=== PATIENT | female | born 1970 | race Caucasian/White ===

== ENCOUNTER → 2017-08-15 16:51 | Outpatient (CLI) | payer MEDICAID, SELFPAY ==
--- NOTE | 2017-08-15 | XR_ITS ---
XR chest 2V HISTORY: Pneumonia, cough and congestion ORDERING PHYSICIAN: Jazmine Fu PATIENT AGE: 47 years COMPARISON: 11/25/2012 FINDINGS: The cardiomediastinal silhouette and pulmonary vascularity are within normal limits. The lungs are clear without infiltrates, suspicious nodules, or pleural effusions. Minimal mid thoracic curvature convex right No acute bony abnormalities. IMPRESSION: Negative chest, no acute finding
== END ==
PROVIDERS: PCP Nurse Practitioner Family; Visit Provider Nurse Practitioner Family
DX: J18.0 Bronchopneumonia, unspecified organism (principal)
CPT/HCPCS: 71046

== ENCOUNTER 2019-10-15 11:04 | Emergency (ER) | payer MEDICAID, SELFPAY ==
[2019-10-15 11:35] LABS: Apearance,Urine Clear (Clear); Color,Urine Yellow (Yellow)
[2019-10-15 11:36] VITALS: BP 126/82; PULSE 68; RESP 20; TEMP 36.6; O2SAT 98; BMI 23.1
[2019-10-15 11:36] LABS: Bilirubin,Urine Negative (Negative); Blood, Urine Negative (Negative); Glucose,Urine (UA) Negative (Negative); Ketones,Urine Negative (Negative); Protein,Urine Negative (Negative); Specific Gravity, Urine 1.015 (1.005-1.030); UTC Leukocyte Esterase,Urine Negative (Negative); UTC Nitrate,Urine Negative (Negative); Urobilinogen,Urine 0.2 EU/dl (0.2)
--- NOTE | 2019-10-15 11:49 | HMH.EDUTC ---
[facility] [place] Clinical Impression: UTI (urinary tract infection) Qualifiers: Urinary tract infection type: acute cystitis Hematuria presence: without hematuria Qualified Code(s): N30.00 - Acute cystitis without hematuria Disposition: Home, Self-Care Condition on Discharge: Good Instructions: DI for Urinary Tract Infection (UTI) Additional Instructions: Follow up with Dr Gilmore next week regarding urine culture results. Prescriptions: Fluconazole [Diflucan 150mg tab] 150 mg PO ONCE 1 Days #1 tab Transmission Status: Pending to [employer] # Cefdinir [Omnicef 300mg Capsule] 300 mg PO BID 20 Days #20 cap Transmission Status: Pending to [employer] # Referrals: Nidia Gilmore MD [Primary Care Provider] - Time of Disposition: 11:53 Medical Decision Making - [place]ton Inquiry Pt receiving controlled substance: No - Lab Data Lab results reviewed: Yes: I reviewed the patient's lab results. Lab Results 10/15/19 11:34: Urine Color Yellow, Urine Appearance Clear, Urine pH 7.0, Ur Specific [place] 1.015, Urine Protein Negative, Urine Glucose (UA) Negative, Urine Ketones Negative, Urine Blood Negative, Urine Nitrate Negative, Urine Bilirubin Negative, Urine Urobilinogen 0.2, Ur Leukocyte Esterase Negative Medical Decision Narrative: Patient states that all symptoms are consistent with UTI symptoms. Unfortunately she has already taken Cipro that she has left over at home. Urinalysis was negative but we will send for culture. [facility] [place] - General Stated complaint: possible UTI Time Seen by Provider: 10/15/19 11:40 - History of Present Illness Provider Complaint: Patient states that she has left ear pain as well as dysuria, frequency, odor and incontinence. Also has mild itchiness. Mild discharge, but she states that that occurs each time she gets a UTI. Has mild suprapubic pain and is irritable/salgado which also occurs with UTI. No fever. No vomiting or diarrhea. Some dizziness when she turns her head. Unfortunately, took leftover Cipro from home which complicates UA results. Onset (ago): week(s) (1) Quality: burning Relieving factors: none Exacerbating factors: none Associated symptoms: denies other symptoms Treatments prior to arrival: none - Related Data Previous Rx's Medication Instructions Recorded Cefdinir [Omnicef 300mg Capsule] 300 mg PO BID 20 Days #20 cap 10/15/19 Fluconazole [Diflucan 150mg tab] 150 mg PO ONCE 1 Days #1 tab 10/15/19 Allergies Allergy/AdvReac Type Severity Reaction Status Date / Time gabapentin [GABAPENTIN] Allergy Unknown SWELLING Unverified 06/24/17 15:18 [facility] History - Hepatitis A Screen Attestation statement:: This patient has been screened for Hepatitis A risk factors. I have reviewed the patient's past medical history: Yes ROS Obtained: Yes All systems reviewed & no additional complaints - ENT Ears, Nose, Mouth, and Throat: Reports otalgia - Genitourinary Female Genitourinary: Reports dysuria, Reports urinary frequency, Reports urinary incontinence, Reports urinary urgency, Reports vaginal discharge, Reports vaginal itching Physical Exam - General General appearance: alert, in no apparent distress - Head Head exam: atraumatic, normocephalic, normal inspection - Eye Eye exam: Present: normal appearance, PERRL, EOMI - ENT ENT exam: Present: normal exam, normal oropharynx, mucous membranes moist, TM's normal bilaterally, normal external ear exam - Neck Neck exam: Present: normal inspection, full ROM, trachea midline. Absent: meningismus, lymphadenopathy - Chest Chest inspection: Present: normal inspection, symmetric chest wall rise. Absent: tenderness - Respiratory Respiratory exam: Present: normal lung sounds bilaterally. Absent: respiratory distress - Cardiovascular Cardiovascular exam: Present: regular rate, normal rhythm. Absent: JVD - Abdominal Exam Abdominal exam: Present: soft, normal bow
[2019-10-15 12:41] VITALS: BP 126/82; PULSE 68; RESP 20; TEMP 36.6; O2SAT 98
== END 2019-10-15 12:43 | disposition home or self-care (01) ==
PROVIDERS: Emergency Provider Physician Assistant; PCP Family Medicine
DX: N30.00 Acute cystitis without hematuria (principal); Z79.899 Other long term (current) drug therapy; H92.09 Otalgia, unspecified ear
CPT/HCPCS: 81003; 87086; 99201

== ENCOUNTER 2020-08-28 14:42 | Emergency (ER) | payer MEDICAID, SELFPAY ==
[2020-08-28 14:43] VITALS: BP 131/85; PULSE 62; RESP 19; TEMP 37.1; O2SAT 100; BMI 31.3
--- NOTE | 2020-08-28 15:10 | ECG_ITS ---
APPROVED REPORT Exam: Resting ECG HR:56 bpm ECG Measurements Heart Rate 56 AXES WV 168 P 58 QRSd 72 QRS 52 QT 422 T 61 QTc 407 Conclusion Sinus bradycardia with marked sinus arrhythmia Otherwise normal ECG Electronically signed by : Yuan Marroquin, 08/28/2020 20:13:48
--- NOTE | 2020-08-28 15:14 | XR_ITS ---
PROCEDURE: XR CHEST 2V CLINICAL HISTORY: syncope Syncope and shortness of breath COMPARISON: CR CXR CHEST(2 VIEWS-NOT PORTABLE) from 09/21/2012 CR CXR CHEST(2 VIEWS-NOT PORTABLE) from 11/25/[address] [facility] [address] CHEST W/O CONTRAST from 03/03/2013 CR CXR2V XR chest 2V from 08/15/2017 FINDINGS: The cardiomediastinal silhouette and pulmonary vascularity are within normal limits. The lungs are clear without infiltrates, suspicious nodules, or pleural effusions. Calcified granuloma right upper lobe. There is mild midthoracic scoliosis convex right. IMPRESSION: No acute findings. Dictated by: Eric Capps MD 08/28/2020 15:42 Eric Capps MD in [place] 08/28/2020 15:42
[2020-08-28 15:20] LABS: Microscopic, Urine URINE MICROSCOPIC (MICROSCOPIC)
[2020-08-28 15:25] LABS: Basophils % 0.6 % (0.1-2.0); Eosinophils # 0.1 K/mm3 (0.0-0.4); Eosinophils % 1.7 % (0.1-12.0); Hematocrit 45.6 % (37.0-47.0); Hemoglobin 14.7 g/dL (12.2-16.2); Lymphocytes # 3.1 K/mm3 (0.7-4.5); Lymphocytes % 42.7 % (10-50); Mean Corpuscular HGB Conc 32.3 g/dL (31.8-35.4); Mean Corpuscular Volume 89.8 fl (81-99); Mean Platelet Volume 7.6 fl (7.4-10.4); Monocytes # 0.3 K/mm3 (0.1-1.0); Monocytes % 4.7 % (1.7-9.3); Neutrophils # 3.7 K/mm3 (1.8-7.8); Neutrophils % 50.4 % (37.0-80.0); Platelet Count 271 K/mm3 (142-424); Red Blood Count 5.07 M/mm3 (4.20-5.40); Red Cell Distribution Width 13.2 % (11.5-17.5); White Blood Count 7.3 K/mm3 (4.8-10.8)
--- NOTE | 2020-08-28 15:30 | CT_ITS ---
PROCEDURE: CT HEAD/BRAIN WO CON CLINICAL INDICATION: syncope Dizziness, Head injury with headache/pain, contusion, abrasion or hematoma COMPARISON: No exams were available for comparison TECHNIQUE: Axial images obtained. All CT scans at the facility use one or more dose reduction, viz: automated exposure control, ma/kV adjustment per patient size (including targeted exams where dose is matched to indication, i.e. head), or iterative reconstruction technique. FINDINGS: No midline shift, mass effect, intracranial hemorrhage, hydrocephalus, or extra-axial fluid collection is evident. The calvarium has an unremarkable appearance. No mastoid effusion. No sinus air-fluid level. IMPRESSION: No acute intracranial finding Dictated by: Eric Capps MD 08/28/2020 16:03 Eric Capps MD in [place] 08/28/2020 16:03
[2020-08-28 15:31] LABS: Chloride 102 mmol/L (98-107); Potassium 3.5 mmoL/L (3.5-5.1); Sodium 140 mmol/L (136-145)
[2020-08-28 15:33] LABS: Appearance,Urine CLEAR (Clear); Bilirubin,Urine Negative (Negative); Blood, Urine TRACE-I (Negative); Color,Urine YELLOW (Yellow); Glucose,Urine (UA) Negative (Negative); Ketones,Urine Negative (Negative); Leukocyte Esterase,Urine Negative (Negative); Nitrate,Urine Negative (Negative); PH,Urine 5.5 (5.0-8.5); Protein,Urine Negative (Negative); Specific Gravity, Urine >= 1.030 (1.005-1.030); Urobilinogen,Urine 0.2 EU/dl (0.2)
[2020-08-28 15:34] LABS: Alanine Aminotransferase 14 U/L (12-78); Albumin Level 4.7 g/dl (3.5-5.0); Albumin/Globulin Ratio 1.5 (1.1-1.8); Alkaline Phosphatase 69 U/L (38-126); Anion Gap 9.5 mEq/L (5-15); Aspartate Amino Transferase 23 U/L (14-36); Bilirubin,Total 0.5 mg/dl (0.2-1.3); Blood Urea Nitrogen 14 mg/dl (7-17); Calcium 9.5 mg/dl (8.4-10.2); Carbon Dioxide 32 mmol/L (22.0-30.0); Creatinine Clearance Estimated 99 mL/min (50-200); Estimated Glomerular Filt Rate 59 ml/min (>60); GFR (African American) 72 ML/MIN (>60); Globulin 3.1 g/dL (1.3-3.2); Glucose 96 mg/dl (74-100); Total Protein,Serum 7.8 g/dl (6.3-8.2)
--- NOTE | 2020-08-28 15:42 | HMH.EDDIZZ ---
ED Disposition Clinical Impression: Vasovagal syncope Disposition: Home, Self-Care Condition on Discharge: Good Instructions: DI for Syncope in Adults (Fainting), DI for Syncope in Children (Fainting) Referrals: Nidia Gilmore MD [Primary Care Provider] - - Critical Care Critical Care Time: No Attestation: On 08/28/20, the high probability of a clinically significant, sudden or life threatening deterioration of the following system(s) required my full and direct attention, intervention and personal management. The time I documented below is in addition to time spent performing reported procedures but includes the following listed in this critical care notation. Medical Decision Making - Medical Records Medical records reviewed: Yes: I reviewed the patient's medical records. - [place] Inquiry Pt receiving controlled substance: No Vital Signs: 08/28/20 14:43 Temperature 98.7 F Temperature Source Oral Pulse Rate [Left Radial] 62 Respiratory Rate 19 Blood Pressure [Right Arm] 131/85 Blood Pressure Mean [Right Arm] 100 Blood Pressure Source [Right Arm] Automatic Cuff Blood Pressure Position [Right Arm] Sitting 02 Sat by Pulse Oximetry 100 Oxygen Delivery Method Room Air - Lab Data Lab Results 08/28/20 14:58: Urine Color Yellow, Urine Appearance Clear, Urine pH 5.5, Ur Specific [place] >= 1.030, Urine Protein Negative, Urine Glucose (UA) Negative, Urine Ketones Negative, Urine Blood Trace-i, Urine Nitrate Negative, Urine Bilirubin Negative, Urine Urobilinogen 0.2, Ur Leukocyte Esterase Negative, Urine RBC 3-5, Urine WBC 3-5, Ur Squamous Epith Cells 5-10, Urine Bacteria 1+ 08/28/20 15:05: WBC 7.3, RBC 5.07, Hgb 14.7, Hct 45.6, MCV 89.8, MCH 29.0, MCHC 32.3, RDW 13.2, Plt Count 271, MPV 7.6, Neut % (Auto) 50.4, Lymph % (Auto) 42.7, [place] % (Auto) 4.7, Eos % (Auto) 1.7, Baso % (Auto) 0.6, Neut # (Auto) 3.7, Lymph # (Auto) 3.1, [place] # (Auto) 0.3, Eos # (Auto) 0.1, Baso # (Auto) 0.0 02/22/21 15:05: Sodium 140, Potassium 3.5, Chloride 102, Carbon Dioxide 32 H, Anion Gap 9.5, BUN 14, Creatinine 1.00, Estimated Creat Clear 99, Estimated GFR 59, Est GFR ( Amer) 72, Glucose 96, Calcium 9.5, Total Bilirubin 0.5, AST 23, ALT 14, Alkaline Phosphatase 69, Troponin I < 0.01, Total Protein 7.8, Albumin 4.7, Globulin 3.1, Albumin/Globulin Ratio 1.5 Result diagrams: 08/28/20 15:05 08/28/20 15:05 Orders (Tests/Meds): ORDERS Category Date Time Status Troponin I Q3H Lab 08/28/20 18:15 Ordered Troponin I Q3H Lab 08/28/20 21:15 Ordered - Radiology Data #1 Image(s): Chest Image Reviewed: Yes I reviewed the patient's radiology results, Yes I reviewed the patient's radiology image Preliminary Findings: Normal/NAD - CT Data CT Scan: Head Time Received: 17:[address] Reviewed: Yes: I have reviewed the patient's CT results, I have viewed the radiologist's interpretation Preliminary Findings: Normal/NAD - ECG Data Tracing #1 ECG initial impression date: 08/28/20 ECG initial impression time: 15:12 ECG normal with no acute: arrhythmias, ischemia, conduction abnormalities, chamber hypertrophy Arrhythmias present: sinus sam (56 bpm) - Reevaluation(s) Time: 17:09 Reevaluation #1: On reevaluation, the patient is feeling much better. Repeat neurologic exam is normal. Patient is hemodynamically stable. Do believe symptoms are consistent with a vasovagal episode. Patient needs follow-up with PCP in 24 hours. Given strict return precautions. Verbalized understanding. Medical Decision Narrative: 50-year-old female presenting after a syncopal episode yesterday. Patient has a normal neurologic examination. Work-up initiated. Dizzy HPI - General Chief Complaint: Syncope Stated Complaint: has been passing out,nausea,dizzy Time Seen by Provider: 08/28/20 14:45 Mode of Arrival: Ambulatory Limitations: No Limitations Description of Symptoms (Recalled from ER Triage Doc. by RN): c/o syncope yesterday and
[2020-08-28 15:53] LABS: Troponin I < 0.01 ng/ml (0.00-0.034)
[2020-08-28 15:55] LABS: Bacteria,Urine 1+ /lpf
[2020-08-28 17:26] VITALS: BP 141/88; PULSE 72; RESP 16; TEMP 36.8; O2SAT 98
== END 2020-08-28 17:27 | disposition home or self-care (01) ==
PROVIDERS: Emergency Provider Emergency Medicine; PCP Family Medicine
DX: R55 Syncope and collapse (principal)
CPT/HCPCS: 70450; 71046; 80053; 81001; 84484; 85025; 93005; 99283

== ENCOUNTER → 2020-09-14 14:20 | Outpatient (CLI) | payer MEDICAID, SELFPAY ==
[2020-09-14 14:58] LABS: Basophils # 0.1 K/mm3 (0-0.2); Basophils % 0.7 % (0.1-2.0); Eosinophils # 0.2 K/mm3 (0.0-0.4); Eosinophils % 2.2 % (0.1-12.0); Hematocrit 45.1 % (37.0-47.0); Hemoglobin 14.7 g/dL (12.2-16.2); Lymphocytes % 29.1 % (10-50); Mean Corpuscular HGB Conc 32.6 g/dL (31.8-35.4); Mean Corpuscular Hemoglobin 28.8 pg (27.0-31.2); Mean Corpuscular Volume 88.4 fl (81-99); Mean Platelet Volume 7.4 fl (7.4-10.4); Monocytes # 0.5 K/mm3 (0.1-1.0); Neutrophils # 6.4 K/mm3 (1.8-7.8); Neutrophils % 63.1 % (37.0-80.0); Platelet Count 258 K/mm3 (142-424); Red Blood Count 5.09 M/mm3 (4.20-5.40); Red Cell Distribution Width 13.1 % (11.5-17.5); White Blood Count 10.2 K/mm3 (4.8-10.8)
[2020-09-14 15:02] LABS: Hemoglobin A1C 5.3 % (4.0-6.0)
[2020-09-14 15:30] LABS: Alanine Aminotransferase 16 U/L (12-78); Albumin Level 4.5 g/dl (3.5-5.0); Albumin/Globulin Ratio 1.6 (1.1-1.8); Alkaline Phosphatase 66 U/L (38-126); Anion Gap 11.2 mEq/L (5-15); Aspartate Amino Transferase 23 U/L (14-36); Bilirubin,Total 0.3 mg/dl (0.2-1.3); Blood Urea Nitrogen 13 mg/dl (7-17); Calcium 9.4 mg/dl (8.4-10.2); Carbon Dioxide 29 mmol/L (22.0-30.0); Chloride 105 mmol/L (98-107); Chol/HDL Ratio 3.4 (1-3.5); Cholesterol 179 mg/dl (140-200); Estimated Glomerular Filt Rate 53 ml/min (>60); GFR (African American) 64 ML/MIN (>60); Globulin 2.8 g/dL (1.3-3.2); Glucose 98 mg/dl (74-100); HDL Cholesterol 53 mg/dl (40-60); Iron 58 ug/dL (37-170); Potassium 4.2 mmoL/L (3.5-5.1); Sodium 141 mmol/L (136-145); Total Protein,Serum 7.3 g/dl (6.3-8.2); Triglycerides 158 mg/dl (30-150); VLDL Cholesterol 32 mg/dL (0-40)
[2020-09-14 15:42] LABS: Direct LDL Cholesterol 98.15 mg/dL (100-129)
[2020-09-14 15:46] LABS: 25-OH Vitamin D, Total 41.8 ng/mL (30-100)
[2020-09-14 15:48] LABS: Free Thyroxine Index 2.9 ug/dL (5.93-13.13); T4 (Thyroxine) 9.3 ug/dl (5.53-11.0); Triiodothryronine (T3) Uptake 31 % (23.5-40.5)
[2020-09-14 16:02] LABS: Thyroid Stimulating Hormone 1.96 uIU/mL (0.465-4.68)
[2020-09-14 16:36] LABS: Vitamin B12 579 pg/mL (239-931)
[2020-09-14 16:37] LABS: Folate > 20.00 ng/mL
[2020-09-14 19:57] LABS: Total Iron Binding Capacity 351 ug/dL (265-497)
== END ==
PROVIDERS: Visit Provider Nurse Practitioner Family
DX: R42 Dizziness and giddiness (principal); R53.83 Other fatigue; Z13.1 Encounter for screening for diabetes mellitus; Z13.220 Encounter for screening for lipoid disorders
CPT/HCPCS: 36415; 80053; 80061; 82306; 82607; 82746; 83036; 83540; 83550; 84436; 84443; 84479; 85025

== ENCOUNTER → 2021-08-22 17:53 | Outpatient (CLI) | payer BC, SELFPAY | PROVIDERS: PCP Family Medicine; Visit Provider Nurse Practitioner | DX: Z20.822 Contact with and (suspected) exposure to COVID-19 (principal) | CPT/HCPCS: C9803; U0003; U0005 ==

== ENCOUNTER 2021-09-07 16:21 | Emergency (ER) | payer BC, SELFPAY ==
[2021-09-07 16:25] VITALS: BP 150/61; PULSE 91; RESP 18; TEMP 36.8; O2SAT 95; BMI 29.7
--- NOTE | 2021-09-07 16:51 | HMH.EDUTC ---
[facility] [place] Clinical Impression: Rash Disposition: Home, Self-Care Condition on Discharge: Good Instructions: Scabies, DI for Scabies, Permethrin Topical Additional Instructions: Use cream as directed Follow up with Family Doctor if no improvement or any worsening of symptoms Return if needed Follow up with Dermatology if no improvement or any worsening of symptoms Straight to ER if any life threatening symptoms Over the counter Aveeno and hydrocortisone may help with itching and irritation Prescriptions: Permethrin [Elimite 5% cream 60gm tube] 1 applicatio TP DIRECTED #60 gm Transmission Status: Pending to [employer] # methylPREDNISolone [Medrol 4mg tab] 4 mg PO DIRECTED #21 tab Transmission Status: Pending to [employer] # Referrals: Marion Garcia APRN [Primary Care Provider] - As needed Yanet Renae MD [Referring] - Time of Disposition: 17:02 Medical Decision Making - Colton Inquiry Pt receiving controlled substance: No Colton was queried for this patient: No Vital Signs: 09/07/21 16:25 Temperature 98.3 F Temperature Source Oral Pulse Rate [Right Brachial] 91 H Respiratory Rate 18 Blood Pressure [Right Arm] 150/61 H Blood Pressure Mean [Right Arm] 90 Blood Pressure Source [Right Arm] Automatic Cuff Blood Pressure Position [Right Arm] Sitting 02 Sat by Pulse Oximetry 95 Oxygen Delivery Method Room Air [facility] [place] HPI - General Stated complaint: rash Time Seen by Provider: 09/07/21 16:51 Mode of Arrival: Ambulatory Source of Information: Patient Limitations: No Limitations Description of Symptoms (Recalled from Triage Doc. by RN): PATIENT C/O ITCHY RASH THAT SHE HAS HAD SINCE June Symptoms (Recalled from RN notes): No Resp Symptoms (Recalled from RN notes): No Skin Symptoms (Recalled from RN notes): Yes MS Symptoms (Recalled from RN notes): No Functional Status (Recalled from RN notes): WNL - History of Present Illness Provider Complaint: Patient states that she has been having itchy rash on her arms that has continued to get worse since Jun States that it all over her arms, upper chest, back and waistline States that it itches so much that she has scratched sores on her body from it States that today she was itching worse so she came in to get checked - Related Data Previous Rx's Medication Instructions Recorded Cefdinir [Omnicef 300mg Capsule] 300 mg PO BID 20 Days #20 cap 10/15/19 Fluconazole [Diflucan 150mg tab] 150 mg PO ONCE 1 Days #1 tab 10/15/19 Permethrin [Elimite 5% cream 60gm 1 applicatio TP DIRECTED #60 gm 09/07/21 tube] methylPREDNISolone [Medrol 4mg 4 mg PO DIRECTED #21 tab 09/07/21 tab] Allergies Allergy/AdvReac Type Severity Reaction Status Date / Time gabapentin [GABAPENTIN] Allergy Unknown SWELLING Verified 10/15/19 11:51 - Worker's Comp Is this a Worker's Comp case?: No [facility] History - Hepatitis A Screen Drug use history?: No High risk sexual behaviors?: No History of sexually transmitted infection?: No Currently employed?: No Childcare worker?: No Do you have indoor plumbing?: Yes Do you have electricity?: Yes Attestation statement:: This patient has been screened for Hepatitis A risk factors. I have reviewed the patient's past medical history: Yes - Social History Alcohol Intake: never Occupational Status: other ROS Obtained: Yes All systems reviewed & no additional complaints, Yes Systems reviewed as appropriate & no additional complaints - Constitutional Constitutional: Reports system reviewed and no additional complaints, except as docu, Denies body ache, Denies chills, Denies fever(s) - ENT Ears, Nose, Mouth, and Throat: Reports system reviewed and no additional complaints, except as docu - Cardiovascular Cardiovascular: Reports system reviewed and no additional complaints, except as docu - Respiratory Respiratory: Reports system reviewed and no additional complai
[2021-09-07 17:05] VITALS: BP 150/61; PULSE 91; RESP 18; TEMP 36.8; O2SAT 95
== END 2021-09-07 17:09 | disposition home or self-care (01) ==
PROVIDERS: Emergency Provider Nurse Practitioner; PCP Nurse Practitioner Family
DX: B86 Scabies (principal); R21 Rash and other nonspecific skin eruption; Z88.8 Allergy status to other drugs, medicaments and biological substances
CPT/HCPCS: 99283

== ENCOUNTER → 2021-11-23 11:22 | Outpatient (CLI) | payer BC, SELFPAY ==
[2021-11-23 11:33] LABS: MANUAL DIFFERENTIAL MANUAL DIFFERENTIAL (MANUAL DIFF)
[2021-11-23 11:55] LABS: Urine Pregnancy, HCG Qual. Negative (Negative)
[2021-11-23 11:57] LABS: Basophils # 0.1 K/mm3 (0-0.2); Basophils % 0.6 % (0.1-2.0); Eosinophils # 0.3 K/mm3 (0.0-0.4); Eosinophils % 3.3 % (0.1-12.0); Hematocrit 42.7 % (37.0-47.0); Hemoglobin 14.4 g/dL (12.2-16.2); Lymphocytes # 2.7 K/mm3 (0.7-4.5); Lymphocytes % 32.6 % (10-50); Mean Corpuscular HGB Conc 33.7 g/dL (31.8-35.4); Mean Corpuscular Hemoglobin 28.5 pg (27.0-31.2); Mean Corpuscular Volume 84.6 fl (81-99); Mean Platelet Volume 7.1 fl (7.4-10.4); Monocytes # 0.5 K/mm3 (0.1-1.0); Monocytes % 5.9 % (1.7-9.3); Neutrophils # 4.8 K/mm3 (1.8-7.8); Neutrophils % 57.6 % (37.0-80.0); Platelet Count 295 K/mm3 (142-424); Red Blood Count 5.05 M/mm3 (4.20-5.40); Red Cell Distribution Width 12.5 % (11.5-17.5); White Blood Count 8.4 K/mm3 (4.8-10.8)
[2021-11-23 12:11] LABS: Eosinophils % 1 % (0-3); Lymphocytes % 33 % (10-50); Monocytes % 6 % (2-9); Neutrophils % 60 % (42-76); Total Cells Counted 100
[2021-11-23 12:12] LABS: Platelet Estimate Normal; RBC Morphology Normal
[2021-11-23 12:30] LABS: Chloride 104 mmol/L (98-107); Sodium 140 mmol/L (136-145)
[2021-11-23 12:31] LABS: Potassium 4.8 mmoL/L (3.5-5.1)
[2021-11-23 12:33] LABS: Blood Urea Nitrogen 14 mg/dl (7-17); Estimated Glomerular Filt Rate 76 ml/min (>60); GFR (African American) 92 ML/MIN (>60)
[2021-11-23 12:34] LABS: Anion Gap 10.8 mEq/L (5-15); Calcium 9.4 mg/dl (8.4-10.2); Carbon Dioxide 30 mmol/L (22.0-30.0); Glucose 95 mg/dl (74-100)
== END ==
PROVIDERS: Visit Provider Surgery
DX: Z01.812 Encounter for preprocedural laboratory examination (principal); Z20.822 Contact with and (suspected) exposure to COVID-19; L73.2 Hidradenitis suppurativa
CPT/HCPCS: 36415; 80048; 81025; 85007; 85014; 85018; 85048; 85049; C9803; U0003; U0005

== ENCOUNTER → 2021-11-29 09:46 | Outpatient (CLI) | payer BC, SELFPAY | PROVIDERS: Visit Provider Surgery | DX: Z01.812 Encounter for preprocedural laboratory examination (principal); Z20.822 Contact with and (suspected) exposure to COVID-19; L73.2 Hidradenitis suppurativa | CPT/HCPCS: C9803; U0003; U0005 ==

== ENCOUNTER 2021-11-30 09:24 | Day surgery (SDC) | payer BC, SELFPAY ==
[2021-11-27 14:04] VITALS: BMI 28.7
[2021-11-30] VITALS (9 sets, daily range): BP systolic 102–129; BP diastolic 62–83; PULSE 56–69; RESP 16–18; TEMP 36.2–36.3; O2SAT 97–100
--- NOTE | 2021-11-30 11:46 | P.PN_ITS ---
[facility] Anesthesia Checklist - Patient Identification Patient Identification: Arm Band - Structural Data Admitted From: Home Planned Operative Procedure/s: I&D bilateral axillary hidratinitis Consent for Planned Operative Procedure(s) Verified: Yes Verified Documents: Surgical Consent, History and Physical - NPO Status Verified Time NPO: 00:00 - Additional verifications Anesthesia Reactions: No Hx Blood Transfusions: No Blood Transfusion Reaction: No - Airway Assessment C-Spine Mobility Assessed: Yes (mp2) TMJ Mobility Assessed: Yes Dentition: Good Dentition - Neurological Assessment Level of Consciousness: Awake, Alert - Anesthesia Plan Anesthesia Risk discussed: Yes Anesthesia Plan: Verified ASA Class: I Anesthesia Type: General [facility] History I have reviewed the patient's past medical history: Yes Medical History: Denies:: Cancer, Diabetes Mellitus Type 1, Diabetes Mellitus Type 2, Internal Pacemaker, MRSA, Seizures *Have you ever received a pneumonia vaccine?: No *Have you received a flu vaccine this season?: No Other Medical History: Denies: Blood Transfusion Reaction Anesthesia experience/problems:: nac Other Surgeries: No: Pacemaker Amputation: No Fractures: No - *Social History Smoking Status: Never smoker Alcohol Intake: current Alcohol Intake Frequency:: holidays/special occasions only Substance Use Type: denies use *Occupational Status:: unemployed *Travel in the last 8 weeks: None Family Hx:: Cancer
--- NOTE | 2021-11-30 11:56 | P.OP_ITS ---
Date of procedure: 11/30/21 Pre-op Diagnosis:: Bilateral axillary hidradenitis with abscess Post-op Diagnosis:: Same Procedure performed:: Incision and drainage/excision of abscessed bilateral axillary hidradenitis Surgeon:: Jose A Bullard MD [employer]LE [employer] CONSULTANT:: Mendez Chen Anesthesia: LMA Estimated blood loss (mL): 10 Operative findings:: Bilateral hidradenitis with inflammatory changes and microabscesses Operative note:: After informed consent was obtained the patient was taken to the operating room and placed in the supine position. General anesthesia with laryngeal mask airway was achieved. Her bilateral axillae were prepped and draped in a sterile fashion. After infiltration local anesthetic an elliptical incision overlying the central portion of the left axillary abscess (hidradenitis with microabscess) was made with electrocautery. The underlying deep tissue was excised with electrocautery and the wound was packed open. The procedure was repeated on 2 separate abscessed hidradenitis sites along the right axilla. All 3 openings were packed in a similar manner and dressings were applied. The patient's anesthetic agents were reversed and she was transferred to recovery after removal of her laryngeal mask airway. Condition: stable Disposition: PACU Specimens:: Left axillary hidradenitis Right axillary hidradenitis Complications:: No immediate
--- NOTE | 2021-11-30 12:05 | P.PN_ITS ---
[facility] Anesthesia Record Part I Intake, IV Amount: 600 Estimated blood loss (mL): 5 Urine output (mL): 0 Blood Pressure: 121/65 SaO2: 99 Pulse Rate: 58 Respiratory Rate: 16 Temperature: 97.4 F Patient is:: Drowsy, Stable Stable to PACU at:: 12:00
--- NOTE | 2021-11-30 18:17 | HMH.ANESII ---
[facility] Anesthesia Record Part II Discharge Time: 12:30 Destination: Surgical Day Care (OP Surgery) PACU nurse assessment reviewed?: Yes Patient Condition:: Good Anesthesia Complications:: None Swallowing reflex intact?: Yes Cyanosis?: No Blood Pressure: 129/78 Pulse Rate: 59 Temperature: 97.1 F Mental Status: Alert & Oriented Pain level:: 4 Nausea and/or vomitting:: None Intake, IV Amount: 0
== END 2021-11-30 13:15 | disposition home or self-care (01) ==
PROVIDERS: PCP Nurse Practitioner Family; Visit Provider Surgery
PROC: (CPT 10061; principal; 2021-11-30 11:00)
DX: L73.2 Hidradenitis suppurativa (principal); Z80.9 Family history of malignant neoplasm, unspecified; Z88.6 Allergy status to analgesic agent; Z79.899 Other long term (current) drug therapy
CPT/HCPCS: 10061; 96374; J2405

== ENCOUNTER 2021-12-05 12:50 | Outpatient (CLI) | payer BC, SELFPAY | END 2021-12-05 13:20 | disposition home or self-care (01) | LOC: INF 12:52 | PROVIDERS: PCP Internal Medicine Adolescent Medicine; Visit Provider Surgery | DX: L73.2 Hidradenitis suppurativa (principal); Z48.01 Encounter for change or removal of surgical wound dressing | CPT/HCPCS: G0463 ==

== ENCOUNTER 2021-12-06 14:07 | Outpatient (CLI) | payer BC, SELFPAY ==
--- NOTE | 2021-12-06 16:16 | PC.NURSE ---
1420 - REMOVED PACKING AND DRESSING FROM WOUNDS. IRRIGATED ALL WITH NS AND PATTED AREAS DRY. REPACKED WITH DRY GAUZE, COVERED WITH ABD PADS, AND TAPED INTO PLACE.
== END 2021-12-06 14:50 | disposition home or self-care (01) ==
LOC: INF 14:08
PROVIDERS: PCP Nurse Practitioner Family; Visit Provider Surgery
DX: L73.2 Hidradenitis suppurativa (principal); Z48.01 Encounter for change or removal of surgical wound dressing
CPT/HCPCS: G0463

== ENCOUNTER 2021-12-07 13:37 | Outpatient (CLI) | payer BC, SELFPAY | END 2021-12-07 13:55 | disposition home or self-care (01) | LOC: INF 13:37 | PROVIDERS: PCP Nurse Practitioner Family; Visit Provider Surgery | DX: L73.2 Hidradenitis suppurativa (principal); Z48.01 Encounter for change or removal of surgical wound dressing | CPT/HCPCS: G0463 ==

== ENCOUNTER 2021-12-08 13:45 | Outpatient (CLI) | payer BC, SELFPAY | END 2021-12-08 14:25 | disposition home or self-care (01) | LOC: INF 13:46 | PROVIDERS: PCP Nurse Practitioner Family; Visit Provider Surgery | DX: L73.2 Hidradenitis suppurativa (principal); Z48.01 Encounter for change or removal of surgical wound dressing | CPT/HCPCS: G0463 ==

== ENCOUNTER → 2022-01-08 07:42 | Outpatient (CLI) | payer BC, SELFPAY ==
--- NOTE | 2022-01-08 07:46 | US_ITS ---
FINAL REPORT CLINICAL HISTORY: RUQ ABD TENDERNESS FINDINGS: Sonographic images of the right upper quadrant were obtained. The pancreas is partially obscured. The liver has increased echogenicity consistent with mild fatty infiltration. There are small hepatic cysts measuring up to 1.2 cm. There are stones within the gallbladder. There is no evidence of biliary ductal dilatation.The common duct measures 3 mm. Limited images of the right kidney are unremarkable. IMPRESSION: Mild fatty liver with small hepatic cysts. Cholelithiasis. Reviewed, Interpreted and Dictated by Donnell Huang III, MD Transcribed by Kelly Obrien Authenticated and [facility]
== END ==
PROVIDERS: PCP Nurse Practitioner Family; Visit Provider Nurse Practitioner Family
DX: R10.811 Right upper quadrant abdominal tenderness (principal)
CPT/HCPCS: 76705

== ENCOUNTER → 2022-02-09 10:27 | Outpatient (CLI) | payer BC, SELFPAY | PROVIDERS: PCP Nurse Practitioner Family; Visit Provider Nurse Practitioner Family | DX: R30.0 Dysuria (principal) | CPT/HCPCS: 87086 ==

== ENCOUNTER 2022-12-21 21:11 | Observation (INO) | payer BC, SELFPAY ==
[2022-12-21 21:06] VITALS: BP 138/71; PULSE 84; RESP 16; TEMP 38.7; O2SAT 98; BMI 29.4
[2022-12-21 21:18] LABS: Coronavirus 19, PCR Not Detected (NotDetected); Influenza A, PCR Not Detected (NotDetected); Influenza B, PCR Not Detected (NotDetected)
[2022-12-21 21:21] LABS: Basophils % 0.9 % (0.1-2.0); Eosinophils % 0.3 % (0.1-12.0); Hematocrit 45.1 % (37.0-47.0); Hemoglobin 15.3 g/dL (12.2-16.2); Lymphocytes # 0.5 K/mm3 (0.7-4.5); Lymphocytes % 15.9 % (10-50); Mean Corpuscular Hemoglobin 28.3 pg (27.0-31.2); Mean Corpuscular Volume 83.2 fl (81-99); Monocytes # 0.3 K/mm3 (0.1-1.0); Monocytes % 9.3 % (1.7-9.3); Neutrophils # 2.4 K/mm3 (1.8-7.8); Neutrophils % 73.6 % (37.0-80.0); Platelet Count 124 K/mm3 (142-424); Red Blood Count 5.42 M/mm3 (4.20-5.40); Red Cell Distribution Width 13.9 % (11.5-17.5); White Blood Count 3.3 K/mm3 (4.8-10.8)
[2022-12-21 21:22] LABS: Chloride 103 mmol/L (98-107); Potassium 3.9 mmoL/L (3.5-5.1); Sodium 136 mmol/L (136-145)
[2022-12-21 21:24] LABS: Blood Urea Nitrogen 12 mg/dl (7-17); Creatinine Clearance Estimated 91 mL/min (50-200); Estimated Glomerular Filt Rate 59 ml/min (>60); GFR (African American) 71 ML/MIN (>60)
[2022-12-21 21:25] LABS: Alanine Aminotransferase 57 U/L (12-78); Albumin Level 3.7 g/dl (3.5-5.0); Albumin/Globulin Ratio 1.3 (1.1-1.8); Alkaline Phosphatase 90 U/L (38-126); Anion Gap 10.9 mEq/L (5-15); Aspartate Amino Transferase 72 U/L (14-36); Bilirubin,Total 0.4 mg/dl (0.2-1.3); Calcium 8.1 mg/dl (8.4-10.2); Carbon Dioxide 26 mmol/L (22.0-30.0); Globulin 2.8 g/dL (1.3-3.2); Glucose 108 mg/dl (74-100); Total Protein,Serum 6.5 g/dl (6.3-8.2)
[2022-12-21 21:30] VITALS: BP 127/78; PULSE 80; O2SAT 98
[2022-12-21 21:31] VITALS: BP 126/74; PULSE 78; O2SAT 99
[2022-12-21 21:32] LABS: Microscopic, Urine URINE MICROSCOPIC (MICROSCOPIC)
[2022-12-21 21:33] LABS: Appearance,Urine SL CLOUDY (Clear); Blood, Urine 2+ (Negative); Color,Urine DK YELLOW (Yellow); Glucose,Urine (UA) Negative (Negative); Ketones,Urine TRACE (Negative); Leukocyte Esterase,Urine Negative (Negative); Nitrate,Urine Negative (Negative); Protein,Urine 1+ (Negative); Specific Gravity, Urine 1.025 (1.005-1.030)
[2022-12-21 21:41] LABS: Bilirubin,Urine 1+ (Negative)
[2022-12-21 21:54] LABS: RBC,Urine Occasional #/hpf (0-3)
[2022-12-21 21:55] LABS: Amorphous Sediment,Urine 1+ /lpf; Bacteria,Urine 1+ /lpf; Squamous Epithelial Cell,Urine 20-50 #/hpf (0-5)
[2022-12-21 22:00] VITALS: BP 130/79; PULSE 82; O2SAT 95
--- NOTE | 2022-12-21 22:08 | HMH.EDFEV ---
Discharge Plan Disposition Patient Disposition: Admitted Chief Complaint: Fever Clinical Impressions Clinical Impression: Acute febrile illness Discharge ED Provider: Joann (ED)Alberto Fever HPI General Chief Complaint: Fever Stated Complaint: Fever Time Seen by Provider: 12/21/22 21:30 Mode of Arrival: EMS Source of Information: Patient, EMS and Medical Record Limitations: No Limitations Description of Symptoms (Recalled from ER Triage Doc. by RN): pt c/o fever, myalgia, weakness, LERMA, chills, and N/V ongoing since 12/16. pt is febrile at this time at 101.6 oral. pt medicated with ibprofen about 5hrs ago. History of Present Illness HPI Narrative: pt presents with fever and achey over the last week - pt has lerma and some soreness to neck and light sensitivity - does reports tick bites but no rash - no known exposure to illness, no cough and no gi illness-no swollen jts and no gu sx - MD complaint: fever and malaise Onset (ago): day(s) Associated symptoms: chills, myalgias and headache Treatments prior to arrival fever: ibuprofen Related Data Home Medications Medication Instructions Recorded Confirmed [id number] 250 1 each PO BID PRN MIMGRAINE 11/27/21 12/12/21 mg-250 mg-65 mg tablet Allergies Allergy/AdvReac Type Severity Reaction Status Date / Time gabapentin [GABAPENTIN] Allergy Unknown SWELLING Verified 12/21/22 21:15 acetaminophen [From Tylenol] AdvReac Rash Verified 12/21/22 21:15 PFSH PFS Disclaimer: The information contained in this section may have been updated after the patient was seen, as this information can be updated by other users. Surgical History (Updated 12/21/22 @ 21:13 by Francine Osorio RN) History of appendectomy Social History Smoking Status: Never smoker alcohol intake: current substance use type: denies use current occupational status: unemployed Travel in the last 8 weeks: None caffeine: Yes ROS Obtained: Yes All systems reviewed & no additional complaints except as documented Physical Exam General General appearance: alert Head Head exam: normocephalic Eye Eye exam: Present PERRL and EOMI; Absent scleral icterus or jaundice ENT ENT exam: Present mucous membranes moist Neck Neck exam: Present full ROM and trachea midline; Absent meningismus Chest Chest inspection: Present normal inspection Respiratory Respiratory exam: Present normal lung sounds bilaterally; Absent respiratory distress Cardiovascular Cardiovascular exam: Present regular rate; Absent systolic murmur or rubs Abdominal Exam Abdominal exam: Present soft; Absent tenderness or guarding Extremities Exam Extremities exam: Present full ROM Back Exam Back exam: Absent CVA tenderness (R) Neurological Exam Neurological exam: Present alert, oriented X3, CN II-XII intact and other (gcs=15); Absent motor sensory deficit Psychiatric Psychiatric exam: Present normal affect Skin Skin exam: Absent rash Medical Decision Making Medical Records Medical records reviewed: Yes I reviewed the patient's medical records. [place] Inquiry Pt receiving controlled substance: No Vital Signs: 12/21/22 21:06 12/21/22 21:30 12/21/22 21:31 Temperature 101.6 F H Temperature Source Oral Pulse Rate 80 78 Pulse Rate [Left] 84 Respiratory Rate 16 Blood Pressure 127/78 126/74 Blood Pressure [Right Arm] 138/71 Blood Pressure Mean Blood Pressure Mean [Right Arm] 93 Blood Pressure Source [Right Arm] Automatic Cuff Blood Pressure Position [Right Arm] Sitting 02 Sat by Pulse Oximetry 98 98 99 Oxygen Delivery Method Room Air Room Air 12/21/22 22:00 12/21/22 23:00 Temperature Temperature Source Pulse Rate 82 78 Pulse Rate [Left] Respiratory Rate 18 Blood Pressure 130/79 127/79 Blood Pressure [Right Arm] Blood Pressure Mean 90 Blood Pressure Mean [Right Arm] Blood Pressure Source [Right Arm] Bloo
--- NOTE | 2022-12-21 22:10 | XR_ITS ---
PROCEDURE INFORMATION: Exam: XR Chest Exam date and time: 12/21/22 10:21 PM Age: 52 years old Clinical indication: Fever TECHNIQUE: Imaging protocol: Radiologic exam of the chest. Views: 2 views. COMPARISON: CR XR CHEST 2V 08/28/20 03:21 PM FINDINGS: Lungs: Unremarkable. No consolidation. Pleural spaces: Unremarkable. No pleural effusion. No pneumothorax. Heart/Mediastinum: Unremarkable. No cardiomegaly. Bones/joints: Unremarkable. IMPRESSION: No acute findings.
--- NOTE | 2022-12-21 22:17 | CT_ITS ---
PROCEDURE INFORMATION: Exam: CT Abdomen And Pelvis With Contrast Exam date and time: 12/21/22 10:40 PM Age: 52 years old Clinical indication: Fever; Additional info: Nausea/vomiting TECHNIQUE: Imaging protocol: Computed tomography of the abdomen and pelvis with contrast. Radiation optimization: All CT scans at this facility use at least one of these dose optimization techniques: automated exposure control; mA and/or kV adjustment per patient size (includes targeted exams where dose is matched to clinical indication); or iterative reconstruction. Contrast material: ISOVUE; Contrast volume: 75 ml; Contrast route: IV; REPORTING DATA: Count of CT and Cardiac NM exams in prior 12 months: This patient has received 0 known CTs and 0 known cardiac nuclear medicine studies in the 12 months prior to the current study. COMPARISON: US GALLBLADDER 01/08/22 08:08 AM FINDINGS: Tubes, catheters and devices: None noted. Lungs: Lung bases appear clear. Heart: No significant coronary calcifications. No cardiomegaly. No significant pericardial effusion. Liver: Normal. Simple hepatic cysts. No mass. Gallbladder and bile ducts: Normal. No calcified stones. No ductal dilation. Pancreas: Normal. No ductal dilation. Spleen: Normal. No splenomegaly. Adrenal glands: Normal. No mass. Kidneys and ureters: Normal. No hydronephrosis. Stomach and bowel: Unremarkable. No obstruction. No mucosal thickening. Appendix: No evidence of appendicitis. Intraperitoneal space: Unremarkable. No free air. No significant fluid collection. Retroperitoneal space: No significant retroperitoneal inflammatory changes are noted. Vasculature: Unremarkable. No abdominal aortic aneurysm. Lymph nodes: Unremarkable. No enlarged lymph nodes. Urinary bladder: Unremarkable as visualized. Reproductive: Unremarkable as visualized. Bones/joints: Unremarkable. No acute fracture. Soft tissues: Unremarkable. IMPRESSION: No acute findings.
--- NOTE | 2022-12-21 22:21 | PC.NURSE ---
blood cultures collected and sent to lab.. lactic collected and sent to lab
[2022-12-21 22:26] LABS: C-Reactive Protein 28.4 mg/L (0-4)
[2022-12-21 22:27] LABS: Urine Pregnancy, HCG Qual. Negative (Negative)
--- NOTE | 2022-12-21 22:27 | CT_ITS ---
PROCEDURE INFORMATION: Exam: CT Head Without Contrast Exam date and time: 12/21/22 10:37 PM Age: 52 years old Clinical indication: Dizziness and fever; Additional info: Illness TECHNIQUE: Imaging protocol: Computed tomography of the head without contrast. Radiation optimization: All CT scans at this facility use at least one of these dose optimization techniques: automated exposure control; mA and/or kV adjustment per patient size (includes targeted exams where dose is matched to clinical indication); or iterative reconstruction. REPORTING DATA: Count of CT and Cardiac NM exams in prior 12 months: This patient has received 0 known CTs and 0 known cardiac nuclear medicine studies in the 12 months prior to the current study. COMPARISON: CT HEAD/BRAIN WO CON 08/28/20 03:47 PM FINDINGS: Brain: Normal. No hemorrhage. Unremarkable white matter. No mass effect. Cerebral ventricles: No ventriculomegaly. Paranasal sinuses: Visualized sinuses are unremarkable. No fluid levels. Mastoid air cells: Visualized mastoid air cells are well aerated. Bones/joints: Unremarkable. No acute fracture. Soft tissues: Unremarkable. IMPRESSION: No acute intracranial abnormality.
--- NOTE | 2022-12-21 22:30 | PC.NURSE ---
paged supervisor [employer] anesthesia for spinal tap. spoke with radha shipman
[2022-12-21 22:39] LABS: Procalcitonin 0.357 ng/mL (0.0-2.0)
[2022-12-21 22:39] LABS: Lactic Acid 0.7 mmol/L (0.7-2.1)
[2022-12-21 22:55] LABS: Erythrocyte Sedimentation Rate 5 mm/hr (0-20)
[2022-12-21 23:00] VITALS: BP 127/79; PULSE 78; RESP 18; O2SAT 98
--- NOTE | 2022-12-21 23:19 | PC.NURSE ---
Elier William CRNA at patient bedside.
--- NOTE | 2022-12-21 23:22 | PC.NURSE ---
Elier William at bedside for procedure.Consent obtained
--- NOTE | 2022-12-21 23:40 | PC.NURSE ---
assisted provider with setup of lumbar puncture. pt monitored during procedure and hemodynamically stable. pt tolerated well. pt resting comfortably at this time.
--- NOTE | 2022-12-21 23:40 | PC.NURSE ---
spoke with dr silva, agree to admit
[2022-12-21 23:50] LABS: Appearance,CSF Clear (Clear); Red Blood Cell,CSF 10 cells/uL (0); Volume,CSF 2.5 mL; White Blood Cell,CSF 5 cells/uL (0-5)
[2022-12-22] VITALS (9 sets, daily range): BP systolic 102–138; BP diastolic 52–75; PULSE 61–80; RESP 16–18; TEMP 36.6–37.6; O2SAT 96–99; BMI 29.4
[2022-12-22 00:31] LABS: Mononuclear WBCs,CSF 0 %; Polynuclear WBCs,CSF 0 %
--- NOTE | 2022-12-22 05:11 | PC.NURSE ---
Patient arrived to the floor from the ER [facility]. After getting her situated in her room has had no issues. Has been up the bathroom 2 assist as she is unsteady on her feet. Patient stated she is very appreciative of the help she has received here.
[2022-12-22 07:22] LABS: Monocytes # 0.3 K/mm3 (0.1-1.0)
[2022-12-22 07:24] LABS: Chloride 109 mmol/L (98-107); Potassium 4.1 mmoL/L (3.5-5.1); Sodium 137 mmol/L (136-145)
[2022-12-22 07:26] LABS: Blood Urea Nitrogen 12 mg/dl (7-17); Creatinine Clearance Estimated 100 mL/min (50-200); Estimated Glomerular Filt Rate 66 ml/min (>60); GFR (African American) 80 ML/MIN (>60)
[2022-12-22 07:27] LABS: Alanine Aminotransferase 47 U/L (12-78); Albumin Level 2.8 g/dl (3.5-5.0); Albumin/Globulin Ratio 1.2 (1.1-1.8); Alkaline Phosphatase 71 U/L (38-126); Anion Gap 7.1 mEq/L (5-15); Aspartate Amino Transferase 60 U/L (14-36); Bilirubin,Total 0.3 mg/dl (0.2-1.3); Calcium 7.5 mg/dl (8.4-10.2); Carbon Dioxide 25 mmol/L (22.0-30.0); Globulin 2.4 g/dL (1.3-3.2); Glucose 83 mg/dl (74-100); Total Protein,Serum 5.2 g/dl (6.3-8.2)
[2022-12-22 07:34] LABS: Eosinophils % 0.4 % (0.1-12.0); Hematocrit 41.1 % (37.0-47.0); Hemoglobin 13.7 g/dL (12.2-16.2); Lymphocytes # 0.6 K/mm3 (0.7-4.5); Lymphocytes % 20.9 % (10-50); Mean Corpuscular HGB Conc 33.3 g/dL (31.8-35.4); Mean Corpuscular Hemoglobin 28.3 pg (27.0-31.2); Mean Corpuscular Volume 84.9 fl (81-99); Mean Platelet Volume 7.9 fl (7.4-10.4); Neutrophils # 1.8 K/mm3 (1.8-7.8); Neutrophils % 67.7 % (37.0-80.0); Platelet Count 97 K/mm3 (142-424); Red Blood Count 4.84 M/mm3 (4.20-5.40); White Blood Count 2.7 K/mm3 (4.8-10.8)
--- NOTE | 2022-12-22 08:56 | EXP.HP ---
History of Present Illness *Admission Date: 12/22/22 *Reason for visit:: Acute febrile illness *History of present illness: 52-year-old female who follows for primary care in our office, came to the emergency department early this morning with a chief complaint of an acute febrile illness. She was in her normal state of health until 4 days ago when she began to have fevers and some body aches and her urine felt warmer. She has a history of UTIs which she self manages with [id number] supplements and increase fluid but this did not resolve with those measures and she began to have increasing fevers, over 102 degrees with body aches, dizziness and significant malaise with chills. She also reports that she was little bit more short of breath with her fever but denies cough or URI symptoms. She took some ibuprofen and this helped her feel better but then she began vomiting about 2 days ago. She has vomited bilious fluid without blood or coffee grounds. She reports no extra abdominal pain but is concerned about a diagnosis of hepatic cysts that have been noticed on imaging in the past. She reports that she is exposed to a lot of outdoor activities with helping with her mother's garden and has a plethora of tick bites on her lower extremities that she began to notice about 3 to 4 weeks ago. Also has a couple of fleabites that she is self treated with cortisone ointment. She presented to the ER where extensive work-up showed clear chest x-ray, clear CT scan of the head, and nonacute abdominal findings on CT with no change in the hepatic cyst which appear to be simple hepatic cyst according to the radiology read. Work-up also included blood cultures, urine cultures, CSF cultures-LP was done because of neck stiffness, headache and fever and CSF initial labs are normal. She was admitted with doxycycline IV and fluids. On further questioning, she notes that she has had no travel, no exposure to untreated water or food products. She does admit that over the past couple of years she has been unable to eat meat or pork products because they make her sick. She denies travel outside [facility] over the past several years. [facility] Disclaimer: The information contained in this section may have been updated after the patient was seen, as this information can be updated by other users. Surgical History History of appendectomy History of removal of cyst Family History (Updated 12/22/22 @ 00:44 by Sindy Nelson RN) Diabetes Heart disease Cancer Social History (Updated 12/22/22 @ 00:45 by Sindy Nelson RN) Smoking Status: Never smoker alcohol intake: current substance use type: denies use current occupational status: unemployed Travel in the last 8 weeks: None caffeine: Yes Review of Systems Review of Systems Review of systems:: pertinent systems reviewed and negative unless documented below Review of systems (narrative): Specifically denies individual or specific groups of joints that hurt or are swollen. She does note that she has cats and has lots of cat scratch hathaway on her arms. Denies cervical or epitrochlear lymph node swelling. Denies unusual ill contacts. She lives at home with her mother who is not ill. Meds Home Medications and Allergies Home Medications Medication Instructions Recorded Confirmed Type No Known Home Medications 12/22/22 12/22/22 History New Prescriptions to Start Prescriptions: Allergies Allergy/AdvReac Type Severity Reaction Status Date / Time gabapentin [GABAPENTIN] Allergy Unknown SWELLING Verified 12/21/22 21:15 acetaminophen [From Tylenol] AdvReac Rash Verified 12/21/22 21:15 Exam Data for Last 24 hours Vital signs and Labs for Last 24 Hours: Temp Pulse Resp BP Pulse Ox 98.5 F 71 16 106/63 L 98 12/22/22 08:00 12/22/22 08:00 12/22/22 08:00 12/22/22 08:00 12/22/22 08:00
--- NOTE | 2022-12-22 15:54 | PC.NURSE ---
Pt has been resting in bed today. Has ambulated to BR. States that she is less week. Has c/o chills x1. Pt noted to also be flushed in cheeks while experiencing chills. Toradol administered. Temp has been no higher than 99.4 this shift. She continues to have poor appetite. Call light within reach.
[2022-12-22 19:43] LABS: Adenovirus,PCR Not Detected (NotDetected); Bordetella Pertussis Not Detected (NotDetected); Chlamydophila Pneumoniae, PCR Not Detected (NotDetected); Coronavirus 19, PCR Not Detected (NotDetected); Coronavirus 229E Not Detected (NotDetected); Coronavirus NL63 Not Detected (NotDetected); Coronavirus OC43 Not Detected (NotDetected); Coronovirus HKU1,PCR Not Detected (NotDetected); Human Metapneumovirus Not Detected (NotDetected); Influenza A, PCR Not Detected (NotDetected); Influenza AH1, 2009 Not Detected (NotDetected); Influenza AH1, PCR Not Detected (NotDetected); Influenza AH3,PCR Not Detected (NotDetected); Influenza B, PCR Not Detected (NotDetected); Mycoplasma Pneumoniae, PCR Not Detected (NotDetected); Parainfluenza 1, PCR Not Detected (NotDetected); Parainfluenza 2, PCR Not Detected (NotDetected); Parainfluenza 3, PCR Not Detected (NotDetected); Parainfluenza 4, PCR Not Detected (NotDetected); Respiratory Syncytial Virus Not Detected (NotDetected); Rhinovirus/Enterovirus Not Detected (NotDetected)
[2022-12-23 04:00] VITALS: BP 142/78; PULSE 99; RESP 18; TEMP 36.8; O2SAT 96; BMI 30.7
--- NOTE | 2022-12-23 05:47 | PC.NURSE ---
pt ambulated to bathroom and voided and then also had nausea while in bathroom, pt became very weak, staff assisted pt back to bed, oral care provided, cool cloth applied, sips warm water given, pt resting, call light within reach
[2022-12-23 06:17] LABS: Eosinophils % 0.5 % (0.1-12.0); Hematocrit 41.9 % (37.0-47.0); Hemoglobin 13.9 g/dL (12.2-16.2); Lymphocytes # 1.2 K/mm3 (0.7-4.5); Lymphocytes % 34.3 % (10-50); Mean Corpuscular HGB Conc 33.3 g/dL (31.8-35.4); Mean Corpuscular Hemoglobin 27.7 pg (27.0-31.2); Mean Corpuscular Volume 83.2 fl (81-99); Mean Platelet Volume 8.6 fl (7.4-10.4); Monocytes # 0.2 K/mm3 (0.1-1.0); Monocytes % 6.5 % (1.7-9.3); Neutrophils # 2.1 K/mm3 (1.8-7.8); Neutrophils % 57.6 % (37.0-80.0); Platelet Count 105 K/mm3 (142-424); Red Blood Count 5.03 M/mm3 (4.20-5.40); Red Cell Distribution Width 13.9 % (11.5-17.5); White Blood Count 3.6 K/mm3 (4.8-10.8)
[2022-12-23 06:23] LABS: Chloride 109 mmol/L (98-107); Potassium 3.9 mmoL/L (3.5-5.1); Sodium 139 mmol/L (136-145)
[2022-12-23 06:26] LABS: Anion Gap 11.9 mEq/L (5-15); Blood Urea Nitrogen 7 mg/dl (7-17); Calcium 7.8 mg/dl (8.4-10.2); Carbon Dioxide 22 mmol/L (22.0-30.0); Creatinine Clearance Estimated 118 mL/min (50-200); Estimated Glomerular Filt Rate 76 ml/min (>60); GFR (African American) 92 ML/MIN (>60); Glucose 92 mg/dl (74-100)
[2022-12-23 08:00] VITALS: BP 118/69; PULSE 77; RESP 20; TEMP 37.4; O2SAT 96
--- NOTE | 2022-12-23 08:44 | EXP.DC.SUM ---
General Admission date:: 12/22/22 Discharge date: 12/23/22 HPI HPI HPI: 52-year-old female who follows for primary care in our office, came to the emergency department early this morning with a chief complaint of an acute febrile illness. She was in her normal state of health until 4 days ago when she began to have fevers and some body aches and her urine felt warmer. She has a history of UTIs which she self manages with amhi-tfx-glmgtee supplements and increase fluid but this did not resolve with those measures and she began to have increasing fevers, over 102 degrees with body aches, dizziness and significant malaise with chills. She also reports that she was little bit more short of breath with her fever but denies cough or URI symptoms. She took some ibuprofen and this helped her feel better but then she began vomiting about 2 days ago. She has vomited bilious fluid without blood or coffee grounds. She reports no extra abdominal pain but is concerned about a diagnosis of hepatic cysts that have been noticed on imaging in the past. She reports that she is exposed to a lot of outdoor activities with helping with her mother's garden and has a plethora of tick bites on her lower extremities that she began to notice about 3 to 4 weeks ago. Also has a couple of fleabites that she is self treated with cortisone ointment. She presented to the ER where extensive work-up showed clear chest x-ray, clear CT scan of the head, and nonacute abdominal findings on CT with no change in the hepatic cyst which appear to be simple hepatic cyst according to the radiology read. Work-up also included blood cultures, urine cultures, CSF cultures-LP was done because of neck stiffness, headache and fever and CSF initial labs are normal. She was admitted with doxycycline IV and fluids. On further questioning, she notes that she has had no travel, no exposure to untreated water or food products. She does admit that over the past couple of years she has been unable to eat meat or pork products because they make her sick. She denies travel outside [facility] over the past several years. Hospital Course Hospital Course Hospital Course: Patient was admitted, underwent work-up including CT of head, LP, multiple lab test, chest x-ray, CT of abdomen and pelvis. These revealed essentially normal findings. Previously noted hepatic cysts are unchanged. Multiple serologies for tick bite illnesses were taken and these are not back yet. Patient was treated with IV doxycycline and IV azithromycin. She did well and her fever curve improved. Over the past 24 hours her fever curve has been under 100 degrees and she is been able to keep fluids and food down. Plan we did discharge home today on doxycycline, azithromycin, Pepcid and Zofran. We will see her in the office on to follow-up her serologies. Exam Data for Last 24 hours Vital signs and Labs for Last 24 Hours: Temp Pulse Resp BP Pulse Ox 99.4 F 77 20 118/69 96 12/23/22 08:00 12/23/22 08:00 12/23/22 08:00 12/23/22 08:00 12/23/22 08:00 Laboratory Results - last 24 hr 12/21/22 21:05: Chlamy pneumoniae PCR Not detected, Adenovirus (PCR) Not detected, B. pertussis DNA (PCR) Not detected, Coronavirus OC43 (PCR) Not detected, Coronavirus HKU1 (PCR) Not detected, Coronavirus 229E (PCR) Not detected, SARS-CoV-2 (PCR) Not detected, Coronavirus NL63 (PCR) Not detected, Human Metapneumovir PCR Not detected, Influenza A (H1) PCR Not detected, Influ A (H1N1/09) PCR Not detected, Influenza A (H3) PCR Not detected, Influenza Type A (PCR) Not detected, Influenza Type B (PCR) Not detected, M. pneumoniae (PCR) Not detected, Parainfluenza 1 (PCR) Not detected, Parainfluenza 2 (PCR) Not detected, Parainfluenza 3 (PCR) Not detected, Parainfluenza 4 (PCR) Not detected, RSV (PCR) Not detected, Entero/Rhino (PCR) Not detected 12/23/22 05:33: WBC 3.6 L D, RBC 5.03, Hgb 13.9, Hct 41.9, MCV 83.2, MCH 27.7, MCHC
--- NOTE | 2022-12-23 13:01 | SW/DCPLANNER ---
Patient stated that she would have transportation home from [facility] today.
[2022-12-24 23:11] LABS: Rocky Mtn Spotted Fever, IgM 0.56 index (0.00-0.89)
--- NOTE | 2022-12-25 12:01 | CARE MANAGER ---
Contacted patient related to hospital discharge. She received her medications before she left and she is feeling a little better. She still has a cough. She is aware of follow up appointment and denies questions or concerns. ANIKA Garcia
[2022-12-25 17:38] LABS: B. henselae IgG Negative titer (Neg:<1:320); B. henselae IgM Negative titer (Neg:<1:100); B. quintana IgG Negative titer (Neg:<1:320); B. quintana IgM Negative titer (Neg:<1:100)
[2022-12-26 18:08] LABS: RMSF, IgG, EIA Positive (Negative)
[2022-12-26 18:08] LABS: Lyme B. burgdorferi PCR Blood Negative (Negative)
[2022-12-28 19:35] LABS: F026-IgE Pork 1.47 kU/L (Class III); F027-IgE Beef 2.81 kU/L (Class III); F088-IgE Lamb 1.26 kU/L (Class II); Immunoglobulin E, Total 170 IU/mL (6-495)
== END 2022-12-23 13:05 | disposition home or self-care (01) ==
LOC: ER 22:18 → 2ND 23:55
PROVIDERS: Admitting Provider Family Medicine; Emergency Provider Emergency Medicine; PCP Internal Medicine Adolescent Medicine; Visit Provider Internal Medicine Adolescent Medicine
DX: R50.9 Fever, unspecified (principal); R55 Syncope and collapse; Z79.899 Other long term (current) drug therapy; R21 Rash and other nonspecific skin eruption; N30.00 Acute cystitis without hematuria
CPT/HCPCS: 36415; 62270; 70450; 71046; 74177; 80048; 80053; 81001; 81025; 83605; 84145; 84155; 85025; 85651; 86140; 86609; 86611; 87040; 87070; 87205; 87476; 87581; 87632; 87635; 87636; 87798; 89051; 99285; C9803; G0378; J0456; J2405; Q9967; U0003; U0005

== ENCOUNTER 2023-07-24 16:42 | Emergency (ER) | payer BC, SELFPAY ==
[2023-07-24 16:44] VITALS: BP 121/87; PULSE 86; RESP 20; TEMP 36.7; O2SAT 97; BMI 29.7
[2023-07-24 16:52] VITALS: BMI 29.7
[2023-07-24 16:54] LABS: Influenza A, PCR Not Detected (NotDetected); Influenza B, PCR Not Detected (NotDetected)
--- NOTE | 2023-07-24 17:43 | HMH.EDGENADL ---
Discharge Plan Disposition Patient Disposition: Home, Self-Care Prescriptions Prescriptions: New ondansetron 4 mg tablet,disintegrating 4 mg PO Q8H PRN (Reason: nausea and vomiting) 4 Days Qty: 12 0RF No Action albuterol sulfate [Ventolin HFA] 90 mcg/actuation HFA aerosol inhaler 2 puff INHALATION Q6HP PRN (Reason: SHORTNESS OF BREATH/WHEEZING) Patient Comments: INHALE TWO PUFFS BY MOUTH EVERY 6 HOURS NEEDED doxycycline hyclate [doxycycline hyclate] 100 mg capsule 100 mg PO BID 10 Days Qty: 20 0RF azithromycin [azithromycin] 250 mg tablet 250 mg PO DIRECTED Qty: 6 0RF Rx Instructions: Take two (2) tablets on day #1, then one (1) tablet day #2 thru #5 ondansetron 4 mg tablet,disintegrating 4 mg PO Q8H PRN (Reason: nausea and vomiting) Qty: 14 0RF famotidine 20 mg tablet 20 mg PO BID Qty: 60 1RF Referrals Follow up/Referrals: Provider,Referral, MD [Primary Care Provider] - See instructions Activity Restrictions/Add. Instructions Additional Instructions/Restrictions: At this time it was felt you are safe to be discharged home. If new or worsening symptoms please do not hesitate to return the emergency department. If symptoms persist please follow-up with your family doctor as you are able. Clinical Impressions Clinical Impression: COVID-19 Discharge ED Provider: Kennedy Cagle General Adult HPI General Chief complaint: Upper Respiratory Infection Stated complaint: weakness, nausea, fever,lower back pain Time Seen by Provider: 07/24/23 17:00 Mode of Arrival: Wheelchair Source of Information: Patient Limitations: No Limitations Description of Symptoms (Recalled from ER Triage Doc. by RN): pt has several complaints mainly flu s/s such as weakness, sore throat, fatigue, chills and headache History of Present Illness HPI narrative: Patient is a 53-year-old female who presents emergency department for evaluation of multiple complaints. Patient has had a bifrontal headache, intermittent cough, drainage, sore throat, global weakness, low back pain, dysuria causing her to present to the emergency department. No reported chest pain. Back pain is left lumbar which she states is usually when she has a urinary tract infection. No other acute complaints. Related Data Home Medications Medication Instructions Recorded Confirmed albuterol sulfate 90 mcg/actuation 2 puff inhalation Q6HP PRN 12/22/22 12/22/22 aerosol inhaler (Ventolin HFA) SHORTNESS OF BREATH/WHEEZING Previous Rx's Medication Instructions Recorded azithromycin 250 mg tablet 250 mg PO DIRECTED #6 tabs 12/23/22 doxycycline hyclate 100 mg capsule 100 mg PO BID 10 days #20 caps 12/23/22 famotidine 20 mg tablet 20 mg PO BID #60 tabs 12/23/22 ondansetron 4 mg disintegrating 4 mg PO Q8H PRN nausea and 12/23/22 tablet vomiting #14 tabs ondansetron 4 mg disintegrating 4 mg PO Q8H PRN nausea and 07/24/23 tablet vomiting 4 days #12 tabs Allergies Allergy/AdvReac Type Severity Reaction Status Date / Time gabapentin [GABAPENTIN] Allergy Unknown SWELLING Verified 12/21/22 21:15 acetaminophen [From Tylenol] AdvReac Rash Verified 12/21/22 21:15 PFS PFS Disclaimer: The information contained in this section may have been updated after the patient was seen, as this information can be updated by other users. Surgical History History of appendectomy History of removal of cyst Family History (Updated 12/22/22 @ 00:44 by Sindy Nelson RN) Other Cancer Diabetes Heart disease Social History (Updated 12/22/22 @ 00:45 by Sindy Nelson RN) Smoking Status: Never smoker alcohol intake: current substance use type: denies use current occupational status: unemployed Travel in the last 8 weeks: None caffeine: Yes ROS Obtained: Yes Systems reviewed as appropriate & no additional complaints except as documented Physical Exam General General appearance: alert and in no apparent distress Head Head exam: atraumatic and normocephalic Eye Eye exam: Present PERRL and EOMI ENT ENT exam: Present mucous membranes moist Neck Neck exam: Present normal inspection Chest Chest inspection: Present normal inspection and symmetric chest wall rise Respiratory Respiratory exam: Present normal lung sounds bilaterally; Absent respiratory distress Cardiovascular Cardiovascular exam: Present regular rate and normal rhythm Abdominal Exam Abdominal exam: Present soft; Absent tenderness Extremities Exam Extremities exam: Present normal inspection Back Exam Back exam: Present normal inspection and tenderness (Left lumbar paraspinal, no midline tenderness) Neurological Exam Neurological exam: Present alert and CN II-XII intact; Absent motor sensory deficit Psychiatric Psychiatric exam: Present normal affect Skin Skin exam: Present warm and dry Medical Decision Making [place] Inquiry Pt receiving controlled substance: No Vital Signs: 07/24/23 16:44 Temperature 98.1 F Temperature Source Oral Pulse Rate [Right Radial] 86 Respiratory Rate 20 Blood Pressure [Right Arm] 121/87 Blood Pressure Mean [Right Arm] 98 02 Sat by Pulse Oximetry 97 Oxygen Delivery Method Room Air Lab Data Lab Results 07/24/23 16:50: SARS-CoV-2 (PCR) Detected A, Influenza A Untype (PCR) Not detected, Influenza Type B (PCR) Not detected 07/24/23 17:30: Urine Color Yellow, Urine Appearance Clear, Urine pH 6.0, Ur Specific [place] 1.025, Urine Protein Negative, Urine Glucose (UA) Negative, Urine Ketones Negative, Urine Blood 2+, Urine Nitrate Negative, Urine Bilirubin Negative, Urine Urobilinogen 0.2, Ur Leukocyte Esterase Negative 07/24/23 17:40: Group A Strep Rapid Negative 07/24/23 17:50: WBC 4.9, RBC 5.08, Hgb 16.2, Hct 43.6, MCV 85.9, MCH 31.9 H, MCHC 37.1 H, RDW 13.9, Plt Count 216, MPV 7.8, Neut % (Auto) 56.7, Lymph % (Auto) 30.5, Carter % (Auto) 11.0 H, Eos % (Auto) 0.5, Baso % (Auto) 1.3, Neut # (Auto) 2.8, Lymph # (Auto) 1.5, Carter # (Auto) 0.5, Eos # (Auto) 0.0, Baso # (Auto) 0.1, Sodium 139, Potassium 4.1, Chloride 103, Carbon Dioxide 27, Anion Gap 13.1, BUN 12, Creatinine 1.00, Estimated Creat Clear 91, Estimated GFR 58 L, Est GFR ( Amer) 71, Glucose 101 H, Calcium 9.1, Magnesium 2.1, Total Bilirubin 0.5, AST 37 H, ALT 35, Alkaline Phosphatase 76, Total Protein 7.7 D, Albumin 4.5, Globulin 3.2, Albumin/Globulin Ratio 1.4, Serum HCG, Qual Negative 07/24/23 17:50 07/24/23 17:50 Orders (Tests/Meds): ED MEDICATIONS Discontinued Medications Generic Name Dose Route Start Last Admin Trade Name Ronnie PRN Reason Stop Dose Admin Acetaminophen 1,000 mg 07/24/23 17:33 07/24/23 17:50 Acetaminophen 1,000mg/100ml Vial IV 07/24/23 17:34 1,000 mg ONCE ONE Administration Lactated Ringer's 1,000 mls @ 999 mls/hr 07/24/23 17:33 07/24/23 17:50 Lactated Ringer's 1000 Ml Bag IV 07/24/23 18:33 999 mls/hr .Q1H1M ONE Administration Ketorolac Tromethamine 30 mg 07/24/23 17:33 07/24/23 17:50 Ketorolac 30mg/Ml Vial IV 07/24/23 17:34 30 mg ONCE ONE Administration Ondansetron HCl 4 mg 07/24/23 17:33 07/24/23 17:50 Ondansetron 4mg/2ml Vial IV 07/24/23 17:34 4 mg ONCE ONE Administration ORDERS Category Date Time Status CBC w/Auto Diff [Complete Blood Count Auto Diff] Stat Lab 07/24/23 17:50 Completed CMP [Comprehensive Metabolic Panel] Stat Lab 07/24/23 17:50 Completed HCG Qualitative, Serum Stat Lab 07/24/23 17:50 Completed MG [Magnesium] Stat Lab 07/24/23 17:50 Completed Rapid PCR Covid and Flu A/B Stat Lab 07/24/23 16:50 Completed Strep Scrn Group A (Rapid) Stat Lab 07/24/23 17:40 Completed UA [Urinalysis and Microscopic] Stat Lab 07/24/23 17:30 Results Strep Screen Confirmation Stat Micro 07/24/23 17:40 Received Medical Decision Narrative: In summary patient is a 53-year-old female past medical history described above presents emergency department for evaluation of multiple complaints. Patient is hemodynamically stable nontoxic-appearing upon arrival, afebrile. Differential diagnosis includes viral syndrome, influenza, COVID, urinary tract infection, electrolyte abnormality, anemia, among others. Workup will be conducted with hematologic labs, urinalysis, viral swab, strep swab. Initial inventions include crystalloid bolus, IV Tylenol, Toradol, Zofran. Patient has a nonfocal neurologic exam and no red flag symptoms, therefore workup with CT imaging of the head was considered but will be deferred. Workup reviewed by me, hematologic labs are nonactionable, urinalysis interpreted by me and not consistent with infection. Viral swab positive for COVID. Strep negative. Upon repeat evaluation patient remained hemodynamically stable and results were discussed at bedside. Patient is appropriate for discharge will be discharged with course of Zofran. Critical Care Critical Care Time Critical Care Time: No
[2023-07-24 17:45] LABS: Coronavirus 19, PCR Detected (NotDetected)
[2023-07-24] MEDS: ONDANSETRON 4MG/2ML VIAL 4 MG IV (17:50)
[2023-07-24] MEDS: KETOROLAC 30MG/ML VIAL 30 MG IV (17:50)
[2023-07-24] MEDS: LACTATED RINGERS 1000ML 1,000 ML 999 ML IV (17:50)
[2023-07-24] MEDS: ACETAMINOPHEN 1,000MG/100ML VIAL 1000 MG IV (17:50)
[2023-07-24 17:53] LABS: Microscopic, Urine URINE MICROSCOPIC (MICROSCOPIC)
[2023-07-24 18:07] LABS: Basophils # 0.1 K/mm3 (0-0.2); Basophils % 1.3 % (0.1-2.0); Eosinophils % 0.5 % (0.1-12.0); Hematocrit 43.6 % (37.0-47.0); Hemoglobin 16.2 g/dL (12.2-16.2); Lymphocytes # 1.5 K/mm3 (0.7-4.5); Lymphocytes % 30.5 % (10-50); Mean Corpuscular HGB Conc 37.1 g/dL (31.8-35.4); Mean Corpuscular Hemoglobin 31.9 pg (27.0-31.2); Mean Corpuscular Volume 85.9 fl (81-99); Mean Platelet Volume 7.8 fl (7.4-10.4); Monocytes # 0.5 K/mm3 (0.1-1.0); Neutrophils # 2.8 K/mm3 (1.8-7.8); Neutrophils % 56.7 % (37.0-80.0); Platelet Count 216 K/mm3 (142-424); Red Blood Count 5.08 M/mm3 (4.20-5.40); Red Cell Distribution Width 13.9 % (11.5-17.5); White Blood Count 4.9 K/mm3 (4.8-10.8)
[2023-07-24 18:15] LABS: Strep Scrn Group A (Rapid) Negative (Negative)
[2023-07-24 18:21] LABS: Chloride 103 mmol/L (98-107); Potassium 4.1 mmoL/L (3.5-5.1); Sodium 139 mmol/L (136-145)
[2023-07-24 18:23] LABS: Alanine Aminotransferase 35 U/L (12-78); Blood Urea Nitrogen 12 mg/dl (7-17); Creatinine Clearance Estimated 91 mL/min (50-200); Estimated Glomerular Filt Rate 58 ml/min (>60); GFR (African American) 71 ML/MIN (>60)
[2023-07-24 18:24] LABS: Albumin Level 4.5 g/dl (3.5-5.0); Albumin/Globulin Ratio 1.4 (1.1-1.8); Alkaline Phosphatase 76 U/L (38-126); Anion Gap 13.1 mEq/L (5-15); Aspartate Amino Transferase 37 U/L (14-36); Bilirubin,Total 0.5 mg/dl (0.2-1.3); Calcium 9.1 mg/dl (8.4-10.2); Carbon Dioxide 27 mmol/L (22.0-30.0); Globulin 3.2 g/dL (1.3-3.2); Glucose 101 mg/dl (74-100); Magnesium 2.1 mg/dl (1.6-2.3); Total Protein,Serum 7.7 g/dl (6.3-8.2)
[2023-07-24 18:45] LABS: Appearance,Urine CLEAR (Clear); Bilirubin,Urine Negative (Negative); Blood, Urine 2+ (Negative); Color,Urine YELLOW (Yellow); Glucose,Urine (UA) Negative (Negative); Ketones,Urine Negative (Negative); Leukocyte Esterase,Urine Negative (Negative); Nitrate,Urine Negative (Negative); Protein,Urine Negative (Negative); Specific Gravity, Urine 1.025 (1.005-1.030); Urobilinogen,Urine 0.2 EU/dl (0.2)
[2023-07-24 18:48] LABS: HCG Qualitative, Serum Negative (Negative)
[2023-07-24 19:25] VITALS: BP 115/73; PULSE 70; RESP 20; TEMP 36.7; O2SAT 97
[2023-07-24 19:46] LABS: Squamous Epithelial Cell,Urine Occasional #/hpf (0-5); WBC,Urine Occasional #/hpf (0-3)
== END 2023-07-24 19:26 | disposition home or self-care (01) ==
PROVIDERS: Emergency Provider Emergency Medicine
DX: U07.1 COVID-19 (principal); R53.1 Weakness; J02.9 Acute pharyngitis, unspecified; R53.83 Other fatigue; R51.9 Headache, unspecified; M54.50 Low back pain, unspecified; R30.0 Dysuria
CPT/HCPCS: 80053; 81001; 83735; 84703; 85025; 87430; 87636; 96361; 96374; 96375; 99285; J0131; J2405